=== PATIENT | male | born 1965 | race Caucasian/White ===

== ENCOUNTER 2016-06-03 21:58 | Emergency (ER) | payer OTHER ==
[~2016-06-03] VITALS: Ht 172.7 cm; Wt 89.1 kg
[~2016-06-03 21:58] MED LIST: AMBIEN10 MG PO; ASPIRIN325 MG PO; ASPIRIN81 M1 PO; ATIVAN1 MG PO; Ancef,Kefzol IV; BLOOD PRESSURE PILL; CALCIUM ACETAT667 M2 PO; CALCIUM ACETAT667 MG PO; CALPHRON667 MG PO; CARDIZEM CD,CA180 MG PO; CARVEDILOL12.5 MG PO; CARVEDILOL25 MG PO; CHOLESTEROL PILL; CLINDAMYCIN HC300 MG PO; CLONAZEPAM0.5 MG PO; COREG25 M1 PO; DIALYSIS; DIALYVITE 3,001 EACH PO; DIALYVITE TABL1 EACH PO; ELIPHOS667 MG PO; FUROSEMIDE40 MG PO; GLIPIZIDE5 MG PO; GLUCOTROL5 MG PO; HUMALOG100 UNIT/1 SC; HYDROCODON-ACE1 EACH PO; HYDROCODONE-AP1 EAC8 PO; INSULIN SC; KAYEXALATE15 GM/60 M PO; KLONOPIN0.5 M1 PO; KLONOPIN1 MG PO; LANTUS (UNITS)1 UNIT SC; LANTUS 3 M100 UNITS1 SC; LANTUS100 UNIT/1 SC; LASIX20 MG PO; LASIX40 MG PO; LIDOCAINE20 MG/1 M5 PO; LITE COAT ASPI325 M1 PO; LO-DOSE ASPIRIN81 M1 PO; LORAZEPAM1 MG PO; LYRICA25 MG PO; LYRICA50 MG PO; Lasix PO; NEURONTIN300 MG PO; NIFEDIPINE ER60 MG PO; NOHOMEMEDS; NORCO 5/3251 TABLET PO; NORVASC10 MG PO; NOVOLOG 10100 UNITS/ SC; NOVOLOG PE100 UNITS/ SC; PRAVACHOL40 M1 PO; PRAVACHOL40 MG PO; PRAVASTATIN SOD40 MG PO; PROCARDIA XL60 MG PO; PROZAC10 MG PO; SENSIPAR30 MG PO; SLEEPING PILL; SPIRONOLACTONE25 MG PO; TAMIFLU75 MG PO; TYLENOL REGULA325 MG PO; Theragran PO; UNABLEOBTAIN; VITAMIN D250000 UNIT PO; VITAMIN D31000 UNI2 PO; VITAMIN D31000 UNIT PO; VITAMIN D400 UNI1 PO; XANAX0.5 MG PO; XANAX1 MG PO; ZESTRIL,PRINIVI20 MG PO; ZOLPIDEM TARTRA10 MG PO
[2016-06-04] MEDS ORDERED: VISTARIL25 MG PO (01:48)
[2016-06-04 02:14] VITALS: BP 000/00
== END 2016-06-04 02:15 | disposition home or self-care (01) ==
LOC: EME 21:58 → EXP 21:58
DX: E11.40 Type 2 diabetes mellitus with diabetic neuropathy, unspecified (principal); G89.29 Other chronic pain; F41.9 Anxiety disorder, unspecified; E78.5 Hyperlipidemia, unspecified; I25.2 Old myocardial infarction; K21.9 Gastro-esophageal reflux disease without esophagitis; I12.9 Hypertensive chronic kidney disease with stage 1 through stage 4 chronic kidney disease, or unspecified chronic kidney disease; N18.9 Chronic kidney disease, unspecified; Z99.2 Dependence on renal dialysis; Z86.73 Personal history of transient ischemic attack (TIA), and cerebral infarction without residual deficits; Z79.84 Long term (current) use of oral hypoglycemic drugs
CPT/HCPCS: 99281; 99283; J3010; Q0177

== ENCOUNTER 2016-06-04 13:35 | Emergency (ER) | payer OTHER ==
[~2016-06-04] VITALS: Ht 172.7 cm; Wt 87.9 kg
[~2016-06-04 13:35] MED LIST changes: +VISTARIL25 MG PO
[2016-06-04 14:48] LABS: HEMATOCRIT 38.4 % (38.0-50.0); MCH 32.6 PG (29.0-34.0); MCHC 34.4 G/DL (30.0-36.0); MCV 94.8 FL (86-99); MEAN PLAT.VOLUME 10.3 uM^3 (9.0-12.4); PLATELET COUNT 215 K/uL (156-360); RBC DIS.WIDTH-CV 12.6 % (11.8-14.6); RBC DIS.WIDTH-SD 42.9 % (39-53); RED BLOOD COUNT 4.05 M/uL (4.00-5.50); WHITE BLOOD COUNT 6.2 K/uL (4.1-10.2)
[2016-06-04 15:03] LABS: CHLORIDE 97 mEq/L (99-109); POTASSIUM 4.6 mEq/L (3.7-5.4); SODIUM 137 mEq/L (136-147)
[2016-06-04 15:04] LABS: GLUCOSE 193 mg/dL (70-99)
[2016-06-04 15:06] LABS: ANION GAP 16 MEQ/L (2-14)
[2016-06-04 15:08] LABS: GFR ESTIMATE (CALCULATED) 11 mL/min/
[2016-06-04 15:09] LABS: UREA NITROGEN (BUN) 19 mg/dL (9-23)
[2016-06-04 15:13] LABS: TROP-I INTERPRETATION NEGATIVE; TROPONIN-I 0.04 ng/mL (0.0-0.30)
[2016-06-04 16:08] VITALS: BP 101/81
== END 2016-06-04 16:00 | disposition home or self-care (01) ==
LOC: EXP 13:35 → EME 13:35 → EXP 16:00
DX: R07.9 Chest pain, unspecified (principal); R00.2 Palpitations; R20.0 Anesthesia of skin; E11.22 Type 2 diabetes mellitus with diabetic chronic kidney disease; I12.0 Hypertensive chronic kidney disease with stage 5 chronic kidney disease or end stage renal disease; N18.6 End stage renal disease; Z99.2 Dependence on renal dialysis; E78.5 Hyperlipidemia, unspecified
CPT/HCPCS: 71020; 80048; 84484; 85027; 93005; 99281; 99284

== ENCOUNTER 2016-09-27 16:13 | Emergency (ER) | payer OTHER ==
[~2016-09-27] VITALS: Ht 172.7 cm; Wt 91.6 kg
[2016-09-27 19:54] VITALS: BP 153/84
[2016-09-27] MEDS ORDERED: NAPROXEN500 MG PO (19:56)
== END 2016-09-27 20:12 | disposition home or self-care (01) ==
LOC: EME 16:13
DX: G62.9 Polyneuropathy, unspecified (principal); M79.89 Other specified soft tissue disorders; E11.9 Type 2 diabetes mellitus without complications; Z79.84 Long term (current) use of oral hypoglycemic drugs
CPT/HCPCS: 73630; 93971; 99281; 99283

== ENCOUNTER 2016-12-18 06:59 | Day surgery (SDC) | payer OTHER ==
[~2016-12-18] VITALS: Ht 172.7 cm; Wt 84.0 kg
[~2016-12-18 06:59] MED LIST changes: +BUSPAR10 MG PO; +NAPROXEN500 MG PO; +TRAMADOL HCL50 MG PO
[2016-12-18 07:51] LABS: POINT-OF-CARE METER ID UU13113696
[2016-12-18 08:53] LABS: METH RESISTANT S AUREUS PCR NEGATIVE (NEGATIVE); PROBE CHECK PASS; SPECIMEN PROCESSING CONTROL PASS
== END 2016-12-18 09:55 | disposition home or self-care (01) ==
LOC: CATH 06:59
PROVIDERS: Surgery
DX: T82.858A Stenosis of other vascular prosthetic devices, implants and grafts, initial encounter (principal); N18.6 End stage renal disease; Z99.2 Dependence on renal dialysis; E78.5 Hyperlipidemia, unspecified
CPT/HCPCS: 82948; 87641; C1725; C1769; C1894; J1644; J2250; J3010

== ENCOUNTER 2017-06-26 15:21 | Emergency (ER) | payer OTHER ==
[~2017-06-26] VITALS: Ht 172.7 cm; Wt 100.1 kg
[2017-06-26 15:53] LABS: HEMATOCRIT 36.5 % (38.0-50.0); HEMOGLOBIN 12.4 G/DL (12.5-16.6); PLATELET COUNT 219 K/uL (156-360); RBC DIS.WIDTH-CV 13.6 % (11.8-14.6); RBC DIS.WIDTH-SD 50.1 % (39-53); RED BLOOD COUNT 3.65 M/uL (4.00-5.50); WHITE BLOOD COUNT 7.5 K/uL (4.1-10.2)
[2017-06-26 15:57] LABS: CHLORIDE 97 mEq/L (99-109); POTASSIUM 5.5 mEq/L (3.7-5.4); SODIUM 137 mEq/L (136-147)
[2017-06-26 15:59] LABS: GLUCOSE 232 mg/dL (70-99)
[2017-06-26 16:03] LABS: CREATININE 4.7 mg/dL (0.6-1.3); GFR ESTIMATE (CALCULATED) 14 mL/min/ (58.99-99999)
[2017-06-26 16:04] LABS: UREA NITROGEN (BUN) 18 mg/dL (9-23)
[2017-06-26 16:11] LABS: TROP-I INTERPRETATION NEGATIVE; TROPONIN-I 0.03 ng/mL (0.0-0.30)
[2017-06-26] MEDS ORDERED: PERCOCET 5/31 TABLET PO (19:02)
[2017-06-26 19:05] VITALS: BP 159/93
== END 2017-06-26 19:06 | disposition home or self-care (01) ==
LOC: EME 15:21
DX: S96.911A Strain of unspecified muscle and tendon at ankle and foot level, right foot, initial encounter (principal); R07.89 Other chest pain; I12.0 Hypertensive chronic kidney disease with stage 5 chronic kidney disease or end stage renal disease; E11.22 Type 2 diabetes mellitus with diabetic chronic kidney disease; Z79.84 Long term (current) use of oral hypoglycemic drugs; N18.6 End stage renal disease; Z99.2 Dependence on renal dialysis; I50.9 Heart failure, unspecified; E78.5 Hyperlipidemia, unspecified; K21.9 Gastro-esophageal reflux disease without esophagitis; I25.2 Old myocardial infarction; Z86.73 Personal history of transient ischemic attack (TIA), and cerebral infarction without residual deficits; Z85.9 Personal history of malignant neoplasm, unspecified; Z90.49 Acquired absence of other specified parts of digestive tract; Z88.8 Allergy status to other drugs, medicaments and biological substances
CPT/HCPCS: 71046; 73630; 80048; 84484; 85027; 93005

== ENCOUNTER 2017-09-04 14:50 | Observation (INO) | payer OTHER ==
[~2017-09-04] VITALS: Ht 172.7 cm; Wt 99.4 kg
[~2017-09-04 14:50] MED LIST changes: +PERCOCET 5/31 TABLET PO
[2017-09-04 15:28] LABS: HEMATOCRIT 38.4 % (38.0-50.0); HEMOGLOBIN 13.1 G/DL (12.5-16.6); MCH 32.9 PG (29.0-34.0); MCHC 34.1 G/DL (30.0-36.0); MCV 96.5 FL (86-99); PLATELET COUNT 177 K/uL (156-360); RBC DIS.WIDTH-CV 13.1 % (11.8-14.6); RBC DIS.WIDTH-SD 46.1 % (39-53); RED BLOOD COUNT 3.98 M/uL (4.00-5.50)
[2017-09-04 15:36] LABS: CHLORIDE 91 mEq/L (99-109); POTASSIUM 4.6 mEq/L (3.7-5.4); SODIUM 135 mEq/L (136-147)
[2017-09-04 15:38] LABS: GLUCOSE 297 mg/dL (70-99)
[2017-09-04 15:41] LABS: CREATININE 5.6 mg/dL (0.6-1.3); GFR ESTIMATE (CALCULATED) 11 mL/min/ (58.99-99999)
[2017-09-04 15:42] LABS: UREA NITROGEN (BUN) 16 mg/dL (9-23)
[2017-09-04 17:43] LABS: TROP-I INTERPRETATION NEGATIVE; TROPONIN-I 0.02 ng/mL (0.0-0.30)
[2017-09-04] MEDS ORDERED: RENVELA800 MG PO (19:46)
[2017-09-04] MEDS ORDERED: ALPRAZOLAM0.5 MG PO (19:47)
[2017-09-04] MEDS ORDERED: ZOLPIDEM TARTRA10 MG PO (19:48)
[2017-09-04] MEDS ORDERED: GLIPIZIDE5 MG PO (19:49)
[2017-09-04] MEDS ORDERED: GABAPENTIN300 MG PO (19:51)
[2017-09-04] MEDS ORDERED: PRAVASTATIN SOD20 MG PO (19:51)
[2017-09-04] MEDS ORDERED: SENSIPAR60 MG PO (19:53)
[2017-09-04] MEDS ORDERED: RENAPLEX-D TAB1 EACH PO (19:54)
[2017-09-04] MEDS ORDERED: ASPIRIN325 MG PO (19:55)
[2017-09-04] MEDS ORDERED: PAROXETINE HCL20 MG PO (20:00)
[2017-09-04 22:28] LABS: TROP-I INTERPRETATION NEGATIVE; TROPONIN-I 0.04 ng/mL (0.0-0.30)
[2017-09-04 22:42] VITALS: BP 160/82
[2017-09-05 03:34] VITALS: BP 148/80
[2017-09-05 05:39] LABS: HEMATOCRIT 37.2 % (38.0-50.0); HEMOGLOBIN 12.7 G/DL (12.5-16.6); MCH 32.9 PG (29.0-34.0); MCHC 34.1 G/DL (30.0-36.0); MCV 96.4 FL (86-99); PLATELET COUNT 169 K/uL (156-360); RBC DIS.WIDTH-CV 13.1 % (11.8-14.6); RED BLOOD COUNT 3.86 M/uL (4.00-5.50); WHITE BLOOD COUNT 6.5 K/uL (4.1-10.2)
[2017-09-05 05:56] LABS: TROP-I INTERPRETATION NEGATIVE; TROPONIN-I 0.03 ng/mL (0.0-0.30)
[2017-09-05 05:57] LABS: CHLORIDE 93 MEQ/L (99-109); GFR ESTIMATE (CALCULATED) 9 mL/min/ (58.99-99999); POTASSIUM 4.7 MEQ/L (3.7-5.4); SODIUM 136 MEQ/L (136-147)
[2017-09-05 06:01] LABS: CREATININE 6.6 MG/DL (0.6-1.3); GLUCOSE 139 mg/dL (70-99); UREA NITROGEN (BUN) 27 mg/dL (9-23)
== END 2017-09-05 11:15 | disposition home or self-care (01) ==
LOC: EME 14:50 → EDOF 20:55 → ENRESERV 20:59 → 4SOUTH 22:17
PROVIDERS: Hospitalist
DX: R07.9 Chest pain, unspecified (principal); E11.22 Type 2 diabetes mellitus with diabetic chronic kidney disease; I13.2 Hypertensive heart and chronic kidney disease with heart failure and with stage 5 chronic kidney disease, or end stage renal disease; N18.6 End stage renal disease; F32.9 Major depressive disorder, single episode, unspecified; I27.20 Pulmonary hypertension, unspecified; I50.30 Unspecified diastolic (congestive) heart failure; E78.5 Hyperlipidemia, unspecified; D63.1 Anemia in chronic kidney disease; D69.6 Thrombocytopenia, unspecified; Z99.2 Dependence on renal dialysis; Z88.8 Allergy status to other drugs, medicaments and biological substances; Z82.49 Family history of ischemic heart disease and other diseases of the circulatory system; Z82.5 Family history of asthma and other chronic lower respiratory diseases; Z83.3 Family history of diabetes mellitus
CPT/HCPCS: 71046; 71275; 80048; 82948; 84484; 85027; 87641; 93005; 99281; 99284; G0378; J1644; J1815; J2270

== ENCOUNTER 2017-10-04 14:53 | Observation (INO) | payer OTHER ==
[~2017-10-04] VITALS: Ht 172.7 cm; Wt 102.5 kg
[~2017-10-04 14:53] MED LIST changes: +ALPRAZOLAM0.5 MG PO; +GABAPENTIN300 MG PO; +PAROXETINE HCL20 MG PO; +PRAVASTATIN SOD20 MG PO; +RENAPLEX-D TAB1 EACH PO; +RENVELA800 MG PO; +SENSIPAR60 MG PO
[2017-10-04 15:26] LABS: BASOPHIL COUNT 0.1 K/uL (0-0.1); EOSINOPHIL (%) 5.9 % (0-5); EOSINOPHIL COUNT 0.5 K/uL (0-0.3); HEMOGLOBIN 11.1 G/DL (12.5-16.6); IMMATURE GRANULOCYTE (%) 0.4 % (0.0-0.7); LYMPHOCYTE (%) 25.4 % (15-42); LYMPHOCYTE COUNT 2.1 K/uL (1.0-2.8); MCH 33.1 PG (29.0-34.0); MCHC 34.7 G/DL (30.0-36.0); MCV 95.5 FL (86-99); MONOCYTE (%) 7.4 % (3-12); MONOCYTE COUNT 0.6 K/uL (0-0.8); NEUTROPHIL (%) 59.9 % (45-76); PLATELET COUNT 174 K/uL (156-360); RBC DIS.WIDTH-CV 13.2 % (11.8-14.6); RBC DIS.WIDTH-SD 45.9 % (39-53); RED BLOOD COUNT 3.35 M/uL (4.00-5.50); WHITE BLOOD COUNT 8.4 K/uL (4.1-10.2)
[2017-10-04 15:51] LABS: TROP-I INTERPRETATION NEGATIVE; TROPONIN-I 0.02 ng/mL (0.0-0.30)
[2017-10-04 16:06] LABS: CHLORIDE 100 mEq/L (99-109); POTASSIUM 5.4 mEq/L (3.7-5.4); SODIUM 142 mEq/L (136-147)
[2017-10-04 16:08] LABS: GLUCOSE 239 mg/dL (70-99)
[2017-10-04 16:12] LABS: CREATININE 9.8 mg/dL (0.6-1.3); GFR ESTIMATE (CALCULATED) 6 mL/min/ (58.99-99999)
[2017-10-04 16:13] LABS: UREA NITROGEN (BUN) 44 mg/dL (9-23)
[2017-10-04] MEDS ORDERED: RENVELA800 MG PO (17:07)
[2017-10-04 17:44] VITALS: BP 147/74
[2017-10-04 20:02] VITALS: BP 147/64
[2017-10-05] VITALS: BP 131/71
[2017-10-05] LABS: TROP-I INTERPRETATION NEGATIVE; TROPONIN-I 0.07 ng/mL (0.0-0.30)
[2017-10-05 04:29] VITALS: BP 152/70
[2017-10-05 05:02] LABS: HEMATOCRIT 31.7 % (38.0-50.0); HEMOGLOBIN 10.8 G/DL (12.5-16.6); MCH 32.9 PG (29.0-34.0); MCHC 34.1 G/DL (30.0-36.0); MCV 96.6 FL (86-99); PLATELET COUNT 183 K/uL (156-360); RBC DIS.WIDTH-CV 13.2 % (11.8-14.6); RBC DIS.WIDTH-SD 46.3 % (39-53); RED BLOOD COUNT 3.28 M/uL (4.00-5.50); WHITE BLOOD COUNT 10.4 K/uL (4.1-10.2)
[2017-10-05 05:11] LABS: ALBUMIN 3.9 g/dL (3.2-4.8)
[2017-10-05 05:12] LABS: CHLORIDE 98 mEq/L (99-109); POTASSIUM 5.4 mEq/L (3.7-5.4); SODIUM 141 mEq/L (136-147)
[2017-10-05 05:14] LABS: TOTAL PROTEIN 7.8 g/dL (6.4-8.3)
[2017-10-05 05:16] LABS: TOTAL BILIRUBIN 0.4 mg/dL (0.0-1.0)
[2017-10-05 05:17] LABS: ALKALINE PHOSPHATASE 79 IU/L (3-129); GLUCOSE 120 mg/dL (70-99)
[2017-10-05 05:18] LABS: CREATININE 10.6 mg/dL (0.6-1.3); GFR ESTIMATE (CALCULATED) 5 mL/min/ (58.99-99999)
[2017-10-05 05:19] LABS: AST (GOT) 22 IU/L (2-34); UREA NITROGEN (BUN) 49 mg/dL (9-23)
[2017-10-05 05:20] LABS: ALT (GPT) 9 IU/L (3-49)
[2017-10-05 07:45] VITALS: BP 144/74
[2017-10-05] MEDS ORDERED: NITROSTAT0.4 MG SL (08:01)
[2017-10-05 08:04] LABS: TROP-I INTERPRETATION NEGATIVE; TROPONIN-I 0.11 ng/mL (0.0-0.30)
[2017-10-05 13:26] VITALS: BP 160/72
[2017-10-05] MEDS ORDERED: XANAX0.5 MG PO (13:39)
== END 2017-10-05 14:39 | disposition home or self-care (01) ==
LOC: EME 14:53 → EDOF 16:51 → ENRESERV 16:53 → 4SOUTH 17:26
PROVIDERS: Emergency Medicine; Hospitalist
PROC: 5A1D70Z Performance of Urinary Filtration, Intermittent, Less than 6 Hours Per Day (ICD-10-PCS; principal; 2017-10-05)
DX: R07.9 Chest pain, unspecified (principal); I13.2 Hypertensive heart and chronic kidney disease with heart failure and with stage 5 chronic kidney disease, or end stage renal disease; I50.9 Heart failure, unspecified; E11.22 Type 2 diabetes mellitus with diabetic chronic kidney disease; N18.6 End stage renal disease; Z99.2 Dependence on renal dialysis; F41.0 Panic disorder [episodic paroxysmal anxiety]; Z95.0 Presence of cardiac pacemaker; I27.20 Pulmonary hypertension, unspecified; D64.9 Anemia, unspecified; Z79.82 Long term (current) use of aspirin; Z79.84 Long term (current) use of oral hypoglycemic drugs; E78.5 Hyperlipidemia, unspecified; I25.2 Old myocardial infarction; Z86.73 Personal history of transient ischemic attack (TIA), and cerebral infarction without residual deficits; Z88.8 Allergy status to other drugs, medicaments and biological substances
CPT/HCPCS: 71045; 80048; 80053; 82948; 84484; 85025; 85027; 93005; 99281; 99285; G0257; G0378; J1644; J2270

== ENCOUNTER 2017-10-07 07:05 | Inpatient (IN) | payer OTHER ==
[~2017-10-07] VITALS: Ht 172.7 cm; Wt 106.0 kg
[~2017-10-07 07:05] MED LIST changes: +NITROSTAT0.4 MG SL
[2017-10-07 07:39] LABS: HEMATOCRIT 28.2 % (38.0-50.0); HEMOGLOBIN 9.7 G/DL (12.5-16.6); MCHC 34.4 G/DL (30.0-36.0); MCV 95.9 FL (86-99); PLATELET COUNT 156 K/uL (156-360); RBC DIS.WIDTH-CV 13.2 % (11.8-14.6); RED BLOOD COUNT 2.94 M/uL (4.00-5.50); WHITE BLOOD COUNT 12.1 K/uL (4.1-10.2)
[2017-10-07 08:15] LABS: TROP-I INTERPRETATION NEGATIVE; TROPONIN-I 0.06 ng/mL (0.0-0.30)
[2017-10-07 08:21] LABS: CHLORIDE 96 MEQ/L (99-109); CREATININE 9.6 MG/DL (0.6-1.3); GFR ESTIMATE (CALCULATED) 6 mL/min/ (58.99-99999); POTASSIUM 5.9 MEQ/L (3.7-5.4); SODIUM 135 MEQ/L (136-147); UREA NITROGEN (BUN) 50 mg/dL (9-23)
[2017-10-07 08:22] LABS: GLUCOSE 225 mg/dL (70-99)
[2017-10-07 09:50] VITALS: BP 176/81
[2017-10-07 09:54] LABS: INTER. NORMALIZED RATIO 1.1
[2017-10-07 10:07] LABS: TROP-I INTERPRETATION NEGATIVE; TROPONIN-I 0.05 ng/mL (0.0-0.30)
[2017-10-07 10:17] LABS: HDL CHOLESTEROL 32 MG/DL (Desirable>=40); LDL CHOLESTEROL 64 mg/dL (Desirable<100); NON-HDL CHOLESTEROL 109 mg/dL (Desirable<160); TOTAL CHOLESTEROL 141 mg/dL (Desirable<200); TRIGLYCERIDES 223 MG/DL (Normal: <150)
[2017-10-07 12:05] LABS: BICARBONATE 24.2 mEq/L (22-26); METHEMOGLOBIN 0.8 % (0-1.5); O2 SATURATION (CALCULATED) 87.1 % (95-99); PCO2 34 mm Hg (35-45); PO2 51 mm Hg (80-100); pH 7.46 (7.35-7.45)
[2017-10-07 12:06] LABS: BASE EXCESS 0.7 mEq/L (-3 to +3)
[2017-10-07 12:26] LABS: HEMOGLOBIN A1c (GLYCOHEMOGLOB) 6.4 % (Below 5.7)
[2017-10-07 17:43] VITALS: BP 179/78
[2017-10-07 19:48] VITALS: BP 131/71
[2017-10-07 19:55] LABS: TROP-I INTERPRETATION NEGATIVE
[2017-10-07 23:04] VITALS: BP 165/77
[2017-10-08 03:08] VITALS: BP 131/60
[2017-10-08 05:50] LABS: HEMOGLOBIN 9.4 G/DL (12.5-16.6); MCH 32.1 PG (29.0-34.0); MCHC 32.4 G/DL (30.0-36.0); PLATELET COUNT 140 K/uL (156-360); RBC DIS.WIDTH-CV 13.3 % (11.8-14.6); RBC DIS.WIDTH-SD 48.5 % (39-53); RED BLOOD COUNT 2.93 M/uL (4.00-5.50)
[2017-10-08 06:30] LABS: CHLORIDE 95 MEQ/L (99-109); GFR ESTIMATE (CALCULATED) 9 mL/min/ (58.99-99999); GLUCOSE 124 mg/dL (70-99); POTASSIUM 4.9 MEQ/L (3.7-5.4); SODIUM 138 MEQ/L (136-147); UREA NITROGEN (BUN) 32 mg/dL (9-23)
[2017-10-08 06:44] LABS: CREATININE 6.9 MG/DL (0.6-1.3)
[2017-10-08 07:04] VITALS: BP 122/61
[2017-10-08 11:03] VITALS: BP 110/57
[2017-10-08 15:17] VITALS: BP 120/65
[2017-10-08 19:46] VITALS: BP 125/70
[2017-10-08 23:52] VITALS: BP 115/57
[2017-10-09] VITALS (9 sets, daily range): BP systolic 100–137; BP diastolic 55–80
[2017-10-09 05:29] LABS: BASOPHIL (%) 0.7 % (0-1); BASOPHIL COUNT 0.1 K/uL (0-0.1); EOSINOPHIL COUNT 0.5 K/uL (0-0.3); HEMATOCRIT 26.7 % (38.0-50.0); HEMOGLOBIN 8.8 G/DL (12.5-16.6); IMMATURE GRANULOCYTE (%) 0.4 % (0.0-0.7); LYMPHOCYTE (%) 14.3 % (15-42); LYMPHOCYTE COUNT 1.1 K/uL (1.0-2.8); MCH 32.4 PG (29.0-34.0); MCV 98.2 FL (86-99); MONOCYTE (%) 6.7 % (3-12); MONOCYTE COUNT 0.5 K/uL (0-0.8); NEUTROPHIL (%) 71.9 % (45-76); NEUTROPHIL COUNT 5.4 K/uL (1.8-6.4); PLATELET COUNT 157 K/uL (156-360); RBC DIS.WIDTH-CV 13.2 % (11.8-14.6); RBC DIS.WIDTH-SD 47.2 % (39-53); RED BLOOD COUNT 2.72 M/uL (4.00-5.50); WHITE BLOOD COUNT 7.6 K/uL (4.1-10.2)
[2017-10-09 06:11] LABS: ALBUMIN 3.5 G/DL (3.2-4.8); ALKALINE PHOSPHATASE 57 IU/L (3-129); ALT (GPT) 6 IU/L (3-49); AST (GOT) 12 IU/L (2-34); CHLORIDE 93 MEQ/L (99-109); GFR ESTIMATE (CALCULATED) 7 mL/min/ (58.99-99999); GLUCOSE 147 mg/dL (70-99); POTASSIUM 5.1 MEQ/L (3.7-5.4); SODIUM 135 MEQ/L (136-147); TOTAL BILIRUBIN 0.4 MG/DL (0.0-1.0); TOTAL PROTEIN 6.6 G/DL (6.4-8.3); UREA NITROGEN (BUN) 47 mg/dL (9-23)
[2017-10-09 06:22] LABS: CREATININE 8.5 MG/DL (0.6-1.3)
[2017-10-10 02:52] VITALS: BP 122/59
[2017-10-10 03:21] LABS: TROP-I INTERPRETATION NEGATIVE; TROPONIN-I 0.03 ng/mL (0.0-0.30)
[2017-10-10 04:56] VITALS: BP 129/65
[2017-10-10 07:31] VITALS: BP 131/66
[2017-10-10 12:19] VITALS: BP 133/69
[2017-10-10 16:28] VITALS: BP 107/61
[2017-10-10 21:18] VITALS: BP 154/77
[2017-10-11 00:12] VITALS: BP 133/67
[2017-10-11 03:32] VITALS: BP 130/65
[2017-10-11 05:51] LABS: HEMATOCRIT 28.5 % (38.0-50.0); HEMOGLOBIN 9.3 G/DL (12.5-16.6); MCV 98.3 FL (86-99)
[2017-10-11 07:30] VITALS: BP 140/75
[2017-10-11 11:19] VITALS: BP 123/65
[2017-10-11 19:45] VITALS: BP 151/73
[2017-10-12 00:15] VITALS: BP 126/60
[2017-10-12 03:55] VITALS: BP 119/61
[2017-10-12 09:59] LABS: BASOPHIL (%) 0.7 % (0-1); BASOPHIL COUNT 0.1 K/uL (0-0.1); EOSINOPHIL (%) 7.1 % (0-5); EOSINOPHIL COUNT 0.5 K/uL (0-0.3); HEMATOCRIT 28.5 % (38.0-50.0); HEMOGLOBIN 9.4 G/DL (12.5-16.6); IMMATURE GRANULOCYTE (%) 0.5 % (0.0-0.7); LYMPHOCYTE (%) 16.5 % (15-42); LYMPHOCYTE COUNT 1.2 K/uL (1.0-2.8); MCH 32.5 PG (29.0-34.0); MCV 98.6 FL (86-99); MONOCYTE (%) 6.3 % (3-12); MONOCYTE COUNT 0.5 K/uL (0-0.8); NEUTROPHIL (%) 68.9 % (45-76); RBC DIS.WIDTH-CV 13.2 % (11.8-14.6); RED BLOOD COUNT 2.89 M/uL (4.00-5.50); WHITE BLOOD COUNT 7.3 K/uL (4.1-10.2)
[2017-10-12 10:01] LABS: PLATELET COUNT 212 K/uL (156-360)
[2017-10-12 10:08] LABS: CHLORIDE 94 mEq/L (99-109); POTASSIUM 5.5 mEq/L (3.7-5.4); SODIUM 137 mEq/L (136-147)
[2017-10-12 10:10] LABS: GLUCOSE 153 mg/dL (70-99)
[2017-10-12 10:14] LABS: GFR ESTIMATE (CALCULATED) 5 mL/min/ (58.99-99999)
[2017-10-12 10:15] LABS: UREA NITROGEN (BUN) 51 mg/dL (9-23)
[2017-10-12 10:16] LABS: CREATININE 10.9 mg/dL (0.6-1.3)
[2017-10-12 10:21] LABS: TROP-I INTERPRETATION NEGATIVE; TROPONIN-I 0.02 ng/mL (0.0-0.30)
[2017-10-12 11:15] VITALS: BP 165/79
[2017-10-12 21:00] VITALS: BP 134/72
[2017-10-13] VITALS (7 sets, daily range): BP systolic 123–149; BP diastolic 60–99
[2017-10-13 05:52] LABS: BASOPHIL (%) 0.7 % (0-1); BASOPHIL COUNT 0.1 K/uL (0-0.1); EOSINOPHIL (%) 7.1 % (0-5); EOSINOPHIL COUNT 0.6 K/uL (0-0.3); HEMATOCRIT 29.9 % (38.0-50.0); HEMOGLOBIN 9.8 G/DL (12.5-16.6); IMMATURE GRANULOCYTE (%) 0.5 % (0.0-0.7); LYMPHOCYTE (%) 14.5 % (15-42); LYMPHOCYTE COUNT 1.2 K/uL (1.0-2.8); MCH 32.3 PG (29.0-34.0); MCHC 32.8 G/DL (30.0-36.0); MCV 98.7 FL (86-99); MONOCYTE (%) 7.7 % (3-12); MONOCYTE COUNT 0.6 K/uL (0-0.8); NEUTROPHIL (%) 69.5 % (45-76); NEUTROPHIL COUNT 5.7 K/uL (1.8-6.4); PLATELET COUNT 244 K/uL (156-360); RBC DIS.WIDTH-CV 13.2 % (11.8-14.6); RBC DIS.WIDTH-SD 47.5 % (39-53); RED BLOOD COUNT 3.03 M/uL (4.00-5.50); WHITE BLOOD COUNT 8.2 K/uL (4.1-10.2)
[2017-10-13 06:15] LABS: CHLORIDE 92 MEQ/L (99-109); GLUCOSE 151 mg/dL (70-99); SODIUM 136 MEQ/L (136-147)
[2017-10-13 06:17] LABS: CREATININE 6.6 MG/DL (0.6-1.3); GFR ESTIMATE (CALCULATED) 9 mL/min/ (58.99-99999); UREA NITROGEN (BUN) 23 mg/dL (9-23); VANCOMYCIN, TROUGH 21.9 MCG/ML (10-20)
[2017-10-14 03:35] VITALS: BP 116/63
[2017-10-14 07:21] VITALS: BP 121/59
[2017-10-14 09:10] LABS: BASOPHIL (%) 0.7 % (0-1); BASOPHIL COUNT 0.1 K/uL (0-0.1); EOSINOPHIL (%) 7.5 % (0-5); EOSINOPHIL COUNT 0.5 K/uL (0-0.3); HEMATOCRIT 24.8 % (38.0-50.0); HEMOGLOBIN 8.2 G/DL (12.5-16.6); IMMATURE GRANULOCYTE (%) 0.4 % (0.0-0.7); LYMPHOCYTE (%) 18.5 % (15-42); LYMPHOCYTE COUNT 1.3 K/uL (1.0-2.8); MCH 32.9 PG (29.0-34.0); MCHC 33.1 G/DL (30.0-36.0); MCV 99.6 FL (86-99); MONOCYTE (%) 9.3 % (3-12); MONOCYTE COUNT 0.6 K/uL (0-0.8); NEUTROPHIL (%) 63.6 % (45-76); NEUTROPHIL COUNT 4.4 K/uL (1.8-6.4); PLATELET COUNT 211 K/uL (156-360); RBC DIS.WIDTH-CV 13.3 % (11.8-14.6); RED BLOOD COUNT 2.49 M/uL (4.00-5.50); WHITE BLOOD COUNT 6.9 K/uL (4.1-10.2)
[2017-10-14 09:21] LABS: ALBUMIN 3.7 G/DL (3.2-4.8); CHLORIDE 92 MEQ/L (99-109); POTASSIUM 5.1 MEQ/L (3.7-5.4); SODIUM 133 MEQ/L (136-147)
[2017-10-14 09:28] LABS: GFR ESTIMATE (CALCULATED) 7 mL/min/ (58.99-99999); GLUCOSE 213 mg/dL (70-99); PHOSPHORUS 3.8 mg/dL (2.5-4.9)
[2017-10-14 09:29] LABS: CREATININE 8.6 MG/DL (0.6-1.3); UREA NITROGEN (BUN) 37 mg/dL (9-23)
[2017-10-14] MEDS ORDERED: IMDUR30 MG PO (12:24)
[2017-10-14] MEDS ORDERED: METOPROLOL SUCC25 MG PO (12:27)
[2017-10-14] MEDS ORDERED: BUPROPION XL150 MG PO (12:27)
[2017-10-14] MEDS ORDERED: AUGMENTIN875 MG PO (12:28)
[2017-10-14 13:18] VITALS: BP 133/73
== END 2017-10-14 14:41 | disposition home or self-care (01) | DRG 190 ==
LOC: EME 07:05 → EDOF 08:41 → 4EAST 08:41
PROVIDERS: Emergency Medicine; Hospitalist; Internal Medicine; Internal Medicine Nephrology
DX: J44.0 Chronic obstructive pulmonary disease with (acute) lower respiratory infection (principal); J15.9 Unspecified bacterial pneumonia; J96.01 Acute respiratory failure with hypoxia; N18.6 End stage renal disease; Z91.15 Patient's noncompliance with renal dialysis; Z99.2 Dependence on renal dialysis; I25.10 Atherosclerotic heart disease of native coronary artery without angina pectoris; R07.89 Other chest pain; I50.9 Heart failure, unspecified; I25.2 Old myocardial infarction; Z95.0 Presence of cardiac pacemaker; I13.2 Hypertensive heart and chronic kidney disease with heart failure and with stage 5 chronic kidney disease, or end stage renal disease; E11.22 Type 2 diabetes mellitus with diabetic chronic kidney disease; F41.1 Generalized anxiety disorder; F41.8 Other specified anxiety disorders; E78.5 Hyperlipidemia, unspecified; F10.20 Alcohol dependence, uncomplicated; D63.1 Anemia in chronic kidney disease; I27.20 Pulmonary hypertension, unspecified; K21.9 Gastro-esophageal reflux disease without esophagitis; E66.9 Obesity, unspecified; Z68.35 Body mass index [BMI] 35.0-35.9, adult; Z79.82 Long term (current) use of aspirin; G89.29 Other chronic pain; E87.70 Fluid overload, unspecified
CPT/HCPCS: 36600; 71045; 71275; 78452; 80048; 80053; 80061; 80069; 80202; 80306 90; 82948; 83036; 83605; 83880; 84145 90; 84484; 85014; 85018; 85025; 85027; 85379; 85610; 87040; 87449; 87641; 93005; 93017; 93306; 93970; 94640; 94669; 94799; 99281; 99285; A9500; C1760; C1769; C1887; C1894; G0257; G0378; J0692; J0881; J1644; J1815; J1940; J2060; J2250; J2270; J2785; J3010; J3370; S0028

== ENCOUNTER 2017-11-04 14:48 | Emergency (ER) | payer OTHER ==
[~2017-11-04] VITALS: Ht 172.7 cm; Wt 99.4 kg
[~2017-11-04 14:48] MED LIST changes: +AUGMENTIN875 MG PO; +BUPROPION XL150 MG PO; +IMDUR30 MG PO; +METOPROLOL SUCC25 MG PO
[2017-11-04 15:30] LABS: HEMATOCRIT 37.2 % (38.0-50.0); HEMOGLOBIN 12.7 G/DL (12.5-16.6); MCH 33.2 PG (29.0-34.0); MCHC 34.1 G/DL (30.0-36.0); MCV 97.4 FL (86-99); PLATELET COUNT 172 K/uL (156-360); RBC DIS.WIDTH-CV 14.7 % (11.8-14.6); RBC DIS.WIDTH-SD 53.1 % (39-53); RED BLOOD COUNT 3.82 M/uL (4.00-5.50); WHITE BLOOD COUNT 6.6 K/uL (4.1-10.2)
[2017-11-04 15:54] LABS: CHLORIDE 93 mEq/L (99-109); POTASSIUM 4.5 mEq/L (3.7-5.4); SODIUM 137 mEq/L (136-147)
[2017-11-04 15:56] LABS: GLUCOSE 210 mg/dL (70-99)
[2017-11-04 16:00] LABS: CREATININE 4.8 mg/dL (0.6-1.3); GFR ESTIMATE (CALCULATED) 14 mL/min/ (58.99-99999); UREA NITROGEN (BUN) 15 mg/dL (9-23)
[2017-11-04 16:03] LABS: TROP-I INTERPRETATION NEGATIVE; TROPONIN-I 0.02 ng/mL (0.0-0.30)
[2017-11-04 19:18] LABS: TROP-I INTERPRETATION NEGATIVE; TROPONIN-I 0.01 ng/mL (0.0-0.30)
[2017-11-04] MEDS ORDERED: ZITHROMAX250 MG PO (19:34)
[2017-11-04 19:58] VITALS: BP 164/80
== END 2017-11-04 19:59 | disposition home or self-care (01) ==
LOC: EME 14:48
PROVIDERS: Emergency Medicine
DX: R07.9 Chest pain, unspecified (principal); R05 Cough; I13.2 Hypertensive heart and chronic kidney disease with heart failure and with stage 5 chronic kidney disease, or end stage renal disease; E11.22 Type 2 diabetes mellitus with diabetic chronic kidney disease; N18.6 End stage renal disease; Z99.2 Dependence on renal dialysis; I50.9 Heart failure, unspecified; E78.5 Hyperlipidemia, unspecified; I25.2 Old myocardial infarction; Z79.82 Long term (current) use of aspirin; Z79.84 Long term (current) use of oral hypoglycemic drugs
CPT/HCPCS: 71046; 80048; 84484; 85027; 93005; 99281; 99285